=== PATIENT | male | born 1980 | race Caucasian/White ===

== ENCOUNTER 2020-04-22 17:44 | Emergency (ER) | payer BC ==
[2020-04-22] MEDS ORDERED: Sodium Chloride 0.9% 2.5 ML Syringe FLUSH PRN (18:52)
[2020-04-22] MEDS ORDERED: Sodium Chloride 0.9% 10 ML Syringe FLUSH PRN (18:52)
[2020-04-22] MEDS ORDERED: Sodium Chloride 0.9% 1,000 ML IV ONE (18:53)
[2020-04-22] MEDS ORDERED: Ondansetron 4 MG/2 ML SDV IVPUSH ONE (18:53)
[2020-04-22] MEDS ORDERED: Pantoprazole 80 MG in Sodium Chloride 0.9% 20 ML IVPUSH ONE (18:54)
--- NOTE | 2020-04-22 19:13 | EDM.PDOC ---
<Mak Saul - Last Filed: 04/22/20 23:39> ED HPI GENERAL MEDICAL PROBLEM - General Chief Complaint: Gastrointestinal Problem Stated Complaint: ABD PAIN / VOMITING Time Seen by Provider: 04/22/20 18:15 - Related Data Allergies Allergy/AdvReac Type Severity Reaction Status Date / Time No Known Allergies Allergy Verified 04/22/20 17:57 Home Meds: Home Meds . [No Known Home Meds] 04/22/20 [History] Departure - Departure Time of Disposition: 23:41 Disposition: Home, Self-Care 01 Condition: Good Clinical Impression: Cholelithiasis Qualifiers: Cholelithiasis location: other site Biliary obstruction: without biliary obstruction Qualified Code(s): K80.80 - Other cholelithiasis without obstruction - Discharge Information *PRESCRIPTION DRUG MONITORING PROGRAM REVIEWED*: Not Applicable *COPY OF PRESCRIPTION DRUG MONITORING REPORT IN PATIENT PRESTON: Not Applicable Instructions: Cholelithiasis Referrals: Diaz Doshi MD [Physician] - 2 Days Forms: ED Department Discharge Additional Instructions: Please avoid fatty foods. Please call Dr. Doshi's office on Friday morning to arrange a follow-up appointment. The following information is given to patients seen in the emergency department who are being discharged to home. This information is to outline your options for follow-up care. We provide all patients seen in our emergency department with a follow-up referral. The need for follow-up, as well as the timing and circumstances, are variable depending upon the specifics of your emergency department visit. If you don't have a primary care physician on staff, we will provide you with a referral. We always advise you to contact your personal physician following an emergency department visit to inform them of the circumstance of the visit and for follow-up with them and/or the need for any referrals to a consulting specialist. The emergency department will also refer you to a specialist when appropriate. This referral assures that you have the opportunity for follow-up care with a specialist. All of these measure are taken in an effort to provide you with optimal care, which includes your follow-up. Under all circumstances we always encourage you to contact your private physician who remains a resource for coordinating your care. When calling for follow-up care, please make the office aware that this follow-up is from your recent emergency room visit. If for any reason you are refused follow-up, please contact the [facility] Emergency Department at and asked to speak to the emergency department charge nurse. - Assessment/Plan Assessment:: Pt received in sign out from prior provider. US with borderline thickening. Pt remains w/out sx in the ED. Pt was evaluated by Dr. Doshi of general surgery in the ED. Given lack of active sx, very minimal leukocytosis and borderline imaging and after discussion between Dr. Doshi and the patient plan will be for dc with outpatient f/u. <Kaylan Marcial - Last Filed: 04/23/20 19:06> ED HPI GENERAL MEDICAL PROBLEM - General Source of Information: Reports: Patient History Limitations: Reports: No Limitations - History of Present Illness INITIAL COMMENTS - FREE TEXT/NARRATIVE: HISTORY AND PHYSICAL: History of present illness: Is a 40-year-old male presenting to the ED for RUQ abdominal pain x4 hours. Patient works nights and notes eating breakfast at 0800 this morning (04/22/20). Patient went to bed and then was awoken at 1500 with RUQ abdominal pain and feeling nauseous. Patient reports forcing himself to vomit 7 times to relieve his symptoms and continues to feel nauseous. Patient has not eaten or drank since 8am today and states symptoms are improving without eating, but feels eating may worsen symptoms. Patient has a h/o of alcohol abuse but states he does not drink much anymore as he is dedicated to his work. Denies any other symptoms or concerns. Admits to smoking three quarters of a pack of cigarettes per day x17 years and admits to drinking a sixpack of light beer per week. Patient denies fever, chills, chest pain, shortness of breath, or cough. Denies headache, neck stiff ness, change in vision, syncope, or near syncope. Denies diarrhea, constipation, or dysuria. Has not noted any blood in urine or stool. Review of systems: As per history of present illness and below otherwise all systems reviewed and negative. Past medical history: As per history of present illness and as reviewed below otherwise noncontributory. Surgical history: As per history of present illness and as reviewed below otherwise noncontributory. Social history: See social history for further information Family history: As per history of present illness and as reviewed below otherwise noncontributory. Physical exam: General: Patient is alert, oriented, and in no acute distress. Patient laying comfortably on exam table. Vitals stable and reviewed by me. HEENT: Atraumatic, normocephalic, pupils equal and reactive bilaterally, negative for conjunctival pallor or scleral icterus, mucous membranes moist, neck supple, nontender, trachea midline. No drooling or trismus noted. No meningeal signs. No hot potato voice noted. Lungs: Clear to auscultation, breath sounds equal bilaterally, chest nontender. Heart: S1S2, regular rate and rhythm without overt murmur Abdomen: Soft, nondistended, RUQ tenderness to palpation, negative rebound. Negative for masses or hepatosplenomegaly. Negative for costovertebral tenderness. Genitourinary: Deferred. Rectal: Deferred. Skin: Intact, warm, dry. No lesions or rashes noted. Extremities: Atraumatic, negative for cords or calf pain. Neurovascular unremarkable. Cap refill WNL Neuro: Awake, alert, oriented. Cranial nerves II through XII unremarkable. Cerebellum unremarkable. Motor and sensory unremarkable throughout. Exam nonfocal. Notes: Patient declines pain medications at this time. I did call and speak to the General Surgeon nutrition technician, Dr. Doshi, and thoroughly discussed patients case, he requests a RUQ US performed and to call him back with results of US. Dr. Saul has assumed care of patient and will follow remaining diagnostics and disposition for patient. Diagnostics: CBC, CMP, lipase, ECG, Trop, Abd/Pelvic CT w cont, RUQ US, COVID 19 Therapeutics: NS, Protonix, Rocephin Impression: RUQ abdominal pain Plan: Definitive disposition and diagnosis as appropriate pending reevaluation and review of above. abdominal Pain Score (Numeric/FACES): 3 Past Medical History - Past Health History Medical/Surgical History: Denies Medical/Surgical History HEENT History: Reports: None Cardiovascular History: Reports: None Respiratory History: Reports: None Gastrointestinal History: Reports: None Genitourinary History: Reports: None Musculoskeletal History: Reports: None Neurological History: Reports: None Psychiatric History: Reports: None Endocrine/Metabolic History: Reports: None Dermatologic History: Reports: None - Infectious Disease History Infectious Disease History: Reports: None Social & Family History - Family History Family Medical History: No Pertinent Family History - Tobacco Use Packs/Tins Daily: 1 - Caffeine Use Caffeine Use: Reports: Coffee, Energy Drinks - Recreational Drug Use Recreational Drug Use Frequency: Socially ED ROS GENERAL - Review of Systems Review Of Systems: Comprehensive ROS is negative, except as noted in HPI. ED EXAM, GENERAL - Physical Exam Exam: See Below (see dictation) Course - Vital Signs Last Recorded V/S: Last Vital Signs Temp 97.1 F 04/22/20 21:55 Pulse 68 04/22/20 21:55 Resp 18 04/22/20 21:55 BP 115/79 04/22/20 21:55 Pulse Ox 97 04/22/20 21:55 - Orders/Labs/Meds Orders: Active Orders 24 hr Category Date Time Status Saline Lock Insert [OM.PC] Stat Oth 04/22/20 18:52 Ordered Labs: Laboratory Tests 04/22/20 04/22/20 04/22/20 Range/Units 18:08 18:08 19:30 WBC 11.34 H (4.0-11.0) K/uL RBC 5.17 (4.50-5.90) M/uL Hgb 16.9 (13.0-17.0) g/dL Hct 48.3 (38.0-50.0) % MCV 93.4 (80.0-98.0) fL MCH 32.7 H (27.0-32.0) pg MCHC 35.0 (31.0-37.0) g/dL RDW Std Deviation 42.4 (28.0-62.0) fl RDW Coeff of Lena 12 (11.0-15.0) % Plt Count 255 (150-400) K/uL MPV 11.90 (7.40-12.00) fL Neut % (Auto) 70.8 (48.0-80.0) % Lymph % (Auto) 22.0 (16.0-40.0) % [place] % (Auto) 5.2 (0.0-15.0) % Eos % (Auto) 1.8 (0.0-7.0) % Baso % (Auto) 0.2 (0.0-1.5) % Neut # (Auto) 8.0 H (1.4-5.7) K/uL Lymph # (Auto) 2.5 H (0.6-2.4) K/uL [place] # (Auto) 0.6 (0.0-0.8) K/uL Eos # (Auto) 0.2 (0.0-0.7) K/uL Baso # (Auto) 0.0 (0.0-0.1) K/uL Nucleated RBC % 0.0 /100WBC Nucleated RBCs # 0 K/uL Sodium 142 (136-148) mmol/L Potassium 3.9 (3.5-5.1) mmol/L Chloride 106 (98-107) mmol/L Carbon Dioxide 24.9 (21.0-32.0) mmol/L BUN 17 (7.0-18.0) mg/dL Creatinine 1.2 (0.8-1.3) mg/dL Est Cr Clr Drug Dosing 78.03 mL/min Estimated GFR (MDRD) > 60.0 ml/min Glucose 128 H (74-106) mg/dL Calcium 9.5 (8.5-10.1) mg/dL Total Bilirubin 0.3 (0.2-1.0) mg/dL AST 26 (15-37) IU/L ALT 54 (14-63) IU/L Alkaline Phosphatase 76 (46-116) U/L Troponin I < 0.050 (0.000-0.056) ng/mL Total Protein 7.4 (6.4-8.2) g/dL Albumin 4.0 (3.4-5.0) g/dL Globulin 3.4 (2.6-4.0) g/dL Albumin/Globulin Ratio 1.2 (0.9-1.6) Lipase 89 (73-393) U/L Urine Color YELLOW Urine Appearance CLEAR Urine pH 6.5 (5.0-8.0) Ur Specific [place] 1.025 (1.001-1.035) Urine Protein NEGATIVE (NEGATIVE) mg/dL Urine Glucose (UA) NEGATIVE (NEGATIVE) mg/dL Urine Ketones NEGATIVE (NEGATIVE) mg/dL Urine Occult Blood NEGATIVE (NEGATIVE) Urine Nitrite NEGATIVE (NEGATIVE) Urine Bilirubin NEGATIVE (NEGATIVE) Urine Urobilinogen 0.2 (<2.0) EU/dL Ur Leukocyte Esterase NEGATIVE (NEGATIVE) Influenza Type A RNA (NEGATIVE) Influenza Type B RNA (NEGATIVE) SARS-CoV-2 RNA (GINO) (NEGATIVE) 04/22/20 Range/Units 21:20 WBC (4.0-11.0) K/uL RBC (4.50-5.90) M/uL Hgb (13.0-17.0) g/dL Hct (38.0-50.0) % MCV (80.0-98.0) fL MCH (27.0-32.0) pg MCHC (31.0-37.0) g/dL RDW Std Deviation (28.0-62.0) fl RDW Coeff of Lena (11.0-15.0) % Plt Count (150-400) K/uL MPV (7.40-12.00) fL Neut % (Auto) (48.0-80.0) % Lymph % (Auto) (16.0-40.0) % [place] % (Auto) (0.0-15.0) % Eos % (Auto) (0.0-7.0) % Baso % (Auto) (0.0-1.5) % Neut # (Auto) (1.4-5.7) K/uL Lymph # (Auto) (0.6-2.4) K/uL [place] # (Auto) (0.0-0.8) K/uL Eos # (Auto) (0.0-0.7) K/uL Baso # (Auto) (0.0-0.1) K/uL Nucleated RBC % /100WBC Nucleated RBCs # K/uL Sodium (136-148) mmol/L Potassium (3.5-5.1) mmol/L Chloride (98-107) mmol/L Carbon Dioxide (21.0-32.0) mmol/L BUN (7.0-18.0) mg/dL Creatinine (0.8-1.3) mg/dL Est Cr Clr Drug Dosing mL/min Estimated GFR (MDRD) ml/min Glucose (74-106) mg/dL Calcium (8.5-10.1) mg/dL Total Bilirubin (0.2-1.0) mg/dL AST (15-37) IU/L ALT (14-63) IU/L Alkaline Phosphatase (46-116) U/L Troponin I (0.000-0.056) ng/mL Total Protein (6.4-8.2) g/dL Albumin (3.4-5.0) g/dL Globulin (2.6-4.0) g/dL Albumin/Globulin Ratio (0.9-1.6) Lipase (73-393) U/L Urine Color Urine Appearance Urine pH (5.0-8.0) Ur Specific [place] (1.001-1.035) Urine Protein (NEGATIVE) mg/dL Urine Glucose (UA) (NEGATIVE) mg/dL Urine Ketones (NEGATIVE) mg/dL Urine Occult Blood (NEGATIVE) Urine Nitrite (NEGATIVE) Urine Bilirubin (NEGATIVE) Urine Urobilinogen (<2.0) EU/dL Ur Leukocyte Esterase (NEGATIVE) Influenza Type A RNA NEGATIVE (NEGATIVE) Influenza Type B RNA NEGATIVE (NEGATIVE) SARS-CoV-2 RNA (GINO) NEGATIVE (NEGATIVE) Meds: Medications Discontinued Medications Generic Name Dose Route Start Last Admin Trade Name Freq PRN Reason Stop Dose Admin Sodium Chloride 1,000 mls @ 999 mls/hr 04/22/20 18:53 04/22/20 19:03 Normal Saline IV 04/22/20 19:53 999 mls/hr STAT ONE Administration Pantoprazole Sodium 80 mg/ 20 mls @ 420 mls/hr 04/22/20 18:54 04/22/20 19:05 Sodium Chloride IVPUSH 04/22/20 18:56 420 mls/hr ONETIME ONE Administration Ceftriaxone Sodium/Dextrose 1 50 mls @ 100 mls/hr 04/22/20 21:09 04/22/20 21:19 gm/ Premix IV 04/22/20 21:38 100 mls/hr ONETIME ONE Administration Sodium Chloride 1,000 mls @ 125 mls/hr 04/22/20 21:30 04/22/20 21:30 Normal Saline IV 04/23/20 05:29 125 mls/hr NOW STA Administration Iopamidol 100 ml 04/22/20 20:22 04/22/20 20:22 Isovue Multipack-370 (76%) IVPUSH 04/22/20 20:23 100 ml ONETIME STA Administration Nicotine 14 mg 04/22/20 21:48 04/22/20 21:53 Habitrol TRDERM 04/22/20 21:49 14 mg ONETIME ONE Administration Ondansetron HCl 4 mg 04/22/20 18:53 02/13/21 19:04 Zofran IVPUSH 04/22/20 18:54 4 mg ONETIME ONE Administration Sodium Chloride 10 ml 04/22/20 18:52 Saline Flush FLUSH ASDIRECTED PRN Keep Vein Open Sodium Chloride 2.5 ml 04/22/20 18:52 Saline Flush FLUSH ASDIRECTED PRN Keep Vein Open Sepsis Event Note (ED) - Evaluation Sepsis Screening Result: No Definite Risk - My Orders Last 24 Hours: My Active Orders 04/22/20 18:52 Saline Lock Insert [OM.PC] Stat - Assessment/Plan Last 24 Hours: My Active Orders 04/22/20 18:52 Saline Lock Insert [OM.PC] Stat
[2020-04-22 19:19] LABS: BLOOD UREA NITROGEN,BUN 17 mg/dL (7.0-18.0); CARBON DIOXIDE,CO2 24.9 mmol/L (21.0-32.0); CHLORIDE,CL 106 mmol/L (98-107); GLUCOSE RANDOM 128 mg/dL (74-106); LIPASE 89 U/L (73-393); POTASSIUM,K 3.9 mmol/L (3.5-5.1); SODIUM,NA 142 mmol/L (136-148)
[2020-04-22] MEDS ORDERED: Iopamidol 755 MG/ML 500 ML Multipack Bottle IVPUSH STA (20:22)
--- NOTE | 2020-04-22 20:53 | CT ---
INDICATION: Lower abdominal pain TECHNIQUE: CT abdomen and pelvis acquired with IV contrast. 100 mL of Isovue 370 administered. COMPARISON: None available FINDINGS: Lower chest: Unremarkable. Liver: Mild hepatic steatosis. Spleen: Unremarkable. Pancreas: Unremarkable. Gallbladder and bile ducts: Cholelithiasis with mild pericholecystic edema and stranding. Adrenal glands: A 2.7 x 2.7 cm predominantly fat attenuation right adrenal lesion, containing ill-defined soft tissue density, consistent with a myelolipoma. Kidneys: No hydronephrosis. A subcentimeter right renal low-density lesion, statistically a small cyst. GI tract: Unremarkable. Appendix is normal. Vascular structures: Unremarkable. Lymph nodes: Unremarkable. Miscellaneous: No free fluid or free air. A very small fat containing paraumbilical hernia. Pelvic Organs: Grossly unremarkable prostate. Mild bladder wall thickening. Bones: Degenerative changes at the lumbosacral junction with a prominent disc osteophyte complex. IMPRESSION: Cholelithiasis with mild pericholecystic edema and stranding. Correlate clinically and with sonography for acute cholecystitis. Mild bladder wall thickening. Correlate for cystitis. A 2.7 cm right adrenal myelolipoma. Mild hepatic steatosis. Please note that all CT scans at this facility use dose modulation, iterative reconstruction, and/or weight-based dosing when appropriate to reduce radiation dose to as low as reasonably achievable. Dictated by Jareth Orozco MD @ Apr 22 2020 8:42PM Signed by Dr. Jareth Orozco @ Apr 22 2020 8:52PM
[2020-04-22] MEDS ORDERED: cefTRIAXone 1 GM in Premix Bag 1 BAG IV ONE (21:09)
[2020-04-22] MEDS ORDERED: Sodium Chloride 0.9% 1,000 ML IV STA (21:30)
[2020-04-22] MEDS ORDERED: Nicotine 14 MG/24 Hr Patch TRDERM ONE (21:48)
[2020-04-22 22:28] LABS: CORONAVIRUS COVID-19 NAA NEGATIVE (NEGATIVE); INFLUENZA A NAA NEGATIVE (NEGATIVE); INFLUENZA B NAA NEGATIVE (NEGATIVE)
--- NOTE | 2020-04-22 23:30 | US ---
INDICATION: Abdominal pain. CT scan earlier showing possible acute cholecystitis. COMPARISON: CT of the abdomen and pelvis 04/22/2020. TECHNIQUE: Real time berman scale imaging and color Doppler analysis was performed of the right upper quadrant. FINDINGS: Liver: The liver is normal in size measuring 14.2 cm in length. Increased echogenicity compatible with hepatic steatosis. No focal liver lesions. Gallbladder: There are multiple stones within the gallbladder. The gallbladder wall is mildly thickened. No pericholecystic fluid. Positive sonographic Dickerson sign. Bile ducts: No biliary dilation. The common bile duct measures 5 mm in diameter. Pancreas: Normal where seen. Right kidney: The right kidney measures 10.7 cm in length. No hydronephrosis, calculus, or mass. Right adrenal gland: There is a 2.9 cm solid hyperechoic lesion in the right adrenal gland. No internal vascularity. This corresponds with the benign myelolipoma seen on CT. IMPRESSION: 1. Cholelithiasis with mild gallbladder wall thickening and positive sonographic Dickerson sign. Findings are compatible with acute cholecystitis. 2. Diffuse hepatic steatosis. 3. 2.9 cm benign myelolipoma in the right adrenal gland. Dictated by Julita Addison MD @ Apr 22 2020 11:22PM Signed by Dr. Julita Addison @ Apr 22 2020 11:28PM
--- NOTE | 2020-04-23 07:04 | ER ---
HISTORY OF PRESENT ILLNESS: The patient is a pleasant 40-year-old gentleman, who said this morning he ate some and went to bed. He said he woke up with some more midabdominal pain. He thought this was food poisoning, so he forced himself to vomit several times. The pain was starting to dissipate, and he was feeling better, but he was worried about food poisoning, so he came to the hospital for further evaluation. The patient did have a CT scan that showed a gallstone with mild pericystic edema and stranding. He then had an ultrasound, which again showed some multiple stones. The gallbladder wall was mildly thickened, but there was no pericholecystic fluid. The nanotechnician reported a positive Dickerson sign. However, when I speak with the patient, he denies any pain or discomfort with ultrasound being done. Currently, the patient says he feels good. He has no nausea or vomiting. He has no abdominal pain. The patient says he has never had an episode like this in the past. The patient does work the night shifts. PAST MEDICAL HISTORY: The patient denies any. CURRENT HOME MEDICATION: The patient denies any. PAST SURGICAL HISTORY: The patient denies any. FAMILY HISTORY: The patient denies any family history of cancer, diabetes, or heart disease. SOCIAL HISTORY: The patient smokes 3/4 of a pack of cigarettes per day. He denies illicit drug use. He drinks about a 6-pack every 2 weeks. He said a couple of months ago, he had a much higher alcohol intake, but he has been quitting. REVIEW OF SYSTEMS: A complete 12+ review of systems was done and was negative, except for what is in the HPI. IMAGING: As per HPI. LABORATORY DATA: White cell count is 11.3, hemoglobin is 16.9, and platelet count is 255. Sodium 142, potassium 3.9, chloride 106, bicarb is 24.9, BUN 17, creatinine 1.2, and glucose is 128. Total bilirubin 0.3, AST is 26, ALT is 54, and alkaline phosphatase is 76. Lipase is 89. PHYSICAL EXAMINATION: GENERAL: The patient is lying comfortably in an ER bed. He is alert, oriented, and in no acute distress. VITAL SIGNS: Temperature is 97.1, pulse is 68, blood pressure is 115/79, and saturating 95% on room air. HEENT: Head is normocephalic and atraumatic. Mouth: He is wearing a mask. LUNGS: Clear to auscultation bilaterally. No rhonchi or wheezing is heard. HEART: Regular rate and rhythm. No murmur is appreciated. ABDOMEN: Soft, nontender, and nondistended. EXTREMITIES: No edema. NEUROLOGICAL: Grossly, no motor or neurologic deficits are noted. ASSESSMENT AND PLAN: This is a pleasant 40-year-old gentleman, who has symptomatic cholelithiasis with biliary colic. I went over with the patient what a gallbladder was. I went over laparoscopic cholecystectomy. I went over the risks, goals, and alternatives of the procedure, which include, but are not limited to, bleeding, infection, bile leak, injury to the common bile duct or duodenum, need to convert to open, hernia formation, and retained gallstones. The patient understands. Since the patient has no LFT elevation, no pericholecystic fluid, and no abdominal pain, this likely is symptomatic cholelithiasis. I went over with the patient that this could be done as an outpatient rather than admission and urgent surgery. The patient agrees. He would like to discharge and follow up in clinic for an outpatient cholecystectomy. I did go over that if he has another attack or the pain comes back, he may need to come back to the emergency room. The patient understands. Meanwhile, the patient is to stay with a low- fat diet until he gets his gallbladder out. All of the patient's questions were answered. I did discuss the case with the emergency room physician. SHERRIE GENTILE /[id number]
== END 2020-04-22 23:56 | disposition home or self-care (01) ==
LOC: MW.ED 17:44
DX: K80.70 Calculus of gallbladder and bile duct without cholecystitis without obstruction (principal); F17.210 Nicotine dependence, cigarettes, uncomplicated; Z20.822 Contact with and (suspected) exposure to COVID-19
CPT/HCPCS: 0240U; 36415; 74177; 76705; 80053; 81003; 83690; 84484; 85025; 93005; 96361; 96365; 96375; 99284; A9270; C9113; J0696; J2405; J7030; Q9967

== ENCOUNTER 2020-07-05 06:48 | Day surgery (SDC) | payer BC ==
[~2020-07-05 06:48] MED LIST: Acetaminophen 1,000 MG in Premix Bag 1 BAG IV ONE; Lactated Ringers 1,000 ML IV SCH; Pregabalin 75 MG Cap PO ONE; cefOXitin 2 GM in Premix Bag 1 BAG IV ONE
[2020-07-05] MEDS ORDERED: Propofol 200 MG/20 ML SDV ONE (07:01)
[2020-07-05] MEDS ORDERED: Ketorolac 30 MG/ML SDV ONE (07:01)
[2020-07-05] MEDS ORDERED: Rocuronium Bromide 50 MG/5 ML Syringe ONE ×2 (07:01→08:14)
[2020-07-05] MEDS ORDERED: Dexamethasone 4 MG/ML 5 ML MDV ONE (07:01)
[2020-07-05] MEDS ORDERED: Ondansetron 4 MG/2 ML SDV ONE (07:01)
[2020-07-05] MEDS ORDERED: Sugammadex Sodium 200 MG/2 ML VIAL ONE (07:01)
[2020-07-05] MEDS ORDERED: Morphine 10 MG/ML Syringe ONE (07:02)
[2020-07-05] MEDS ORDERED: fentaNYL 100 MCG/2 ML SDV ONE ×2 (07:02→08:14)
[2020-07-05] MEDS ORDERED: HYDROmorphone 2 MG/ML Syringe IVPUSH PRN (07:21)
[2020-07-05] MEDS ORDERED: Ondansetron 4 MG/2 ML SDV IVPUSH PRN (07:21)
[2020-07-05] MEDS ORDERED: Metoclopramide 10 MG/2 ML SDV IVPUSH PRN (07:21)
[2020-07-05] MEDS ORDERED: Morphine 2 MG/ML SYRINGE IVPUSH PRN (07:21)
[2020-07-05] MEDS ORDERED: Naloxone 0.4 MG/ML Syringe IVPUSH PRN (07:21)
[2020-07-05] MEDS ORDERED: Albuterol 0.083% 2.5 MG/3 ML Neb Soln NEB PRN (07:21)
--- NOTE | 2020-07-05 07:21 | PCM.PREANE ---
Preanesthetic Assessment - Anesthesia/Transfusion/Family Hx Anesthesia History: Prior Anesthesia Without Reaction Family History of Anesthesia Reaction: No Transfusion History: No Prior Transfusion(s) Intubation History: Unknown - Review of Systems General: No Symptoms Pulmonary: No Symptoms Cardiovascular: No Symptoms Gastrointestinal: No Symptoms Neurological: No Symptoms Other: Reports: None - Physical Assessment NPO Status Date: 07/05/20 NPO Status Time: 00:00 Height: 5 ft 9 in Weight: 202 lb ASA Class: 2 Mental Status: Alert & Oriented x3 Dentition: Reports: Normal Dentition ROM/Head Extension: Full Lungs: Clear to Auscultation, Normal Respiratory Effort Cardiovascular: Regular Rate, Regular Rhythm - Allergies Allergies/Adverse Reactions: Allergies Allergy/AdvReac Type Severity Reaction Status Date / Time No Known Allergies Allergy Verified 07/04/20 09:04 - Blood Blood Available: No - Acknowledgements Anesthesia Type Planned: General Anesthesia Pt an Appropriate Candidate for the Planned Anesthesia: Yes Alternatives and Risks of Anesthesia Discussed w Pt/Guardian: Yes Pt/Guardian Understands and Agrees with Anesthesia Plan: Yes PreAnesthesia Questionnaire - Past Health History Medical/Surgical History: Denies Medical/Surgical History HEENT History: Reports: None Cardiovascular History: Reports: None Respiratory History: Reports: None Gastrointestinal History: Reports: None Other Gastrointestinal History: symptomatic cholelithiasis Genitourinary History: Reports: None Musculoskeletal History: Reports: None Neurological History: Reports: None Psychiatric History: Reports: None Endocrine/Metabolic History: Reports: None Hematologic History: Reports: None Immunologic History: Reports: None Oncologic (Cancer) History: Reports: None Dermatologic History: Reports: None - Infectious Disease History Infectious Disease History: Reports: None - Past Surgical History Head Surgeries/Procedures: Reports: None HEENT Surgical History: Reports: Oral Surgery Other HEENT Surgeries/Procedures: wisdom teeth extraction Cardiovascular Surgical History: Reports: None Respiratory Surgical History: Reports: None GI Surgical History: Reports: None Male Surgical History: Reports: None Endocrine Surgical History: Reports: None Neurological Surgical History: Reports: None Musculoskeletal Surgical History: Reports: None Oncologic Surgical History: Reports: None Dermatological Surgical History: Reports: None - SUBSTANCE USE Tobacco Use Status *Q: Current Every Day Tobacco User Tobacco Use Within Last Twelve Months: Cigarettes - HOME MEDS Home Medications: Home Meds . [No Known Home Meds] 04/22/20 [History] - CURRENT (IN HOUSE) MEDS Current Meds: Current Medications Lactated Ringer's (Ringers, Lactated) 1,000 mls @ 125 mls/hr IV ASDIRECTED ROEL Discontinued Medications Dexamethasone (Dexamethasone 4 Mg/Ml 5 Ml Mdv) Confirm Administered Dose 20 mg .ROUTE .STK-MED ONE Stop: 07/05/20 07:02 Fentanyl (Fentanyl 100 Mcg/2 Ml Sdv) Confirm Administered Dose 100 mcg .ROUTE .STK-MED ONE Stop: 07/05/20 07:03 Cefoxitin Sodium 2 gm/ Premix 50 mls @ 100 mls/hr IV ONETIME ONE Stop: 07/03/20 09:51 Acetaminophen 1,000 mg/ Premix 100 mls @ 400 mls/hr IV NOW ONE Stop: 07/03/20 09:36 Acetaminophen (Ofirmev 1000 Mg/100 Ml) Confirm Administered Dose 100 mls @ as directed .ROUTE .STK-MED ONE Stop: 07/05/20 07:02 Ketorolac Tromethamine (Ketorolac 30 Mg/Ml Sdv) Confirm Administered Dose 30 mg .ROUTE .STK-MED ONE Stop: 07/05/20 07:02 Lidocaine HCl (Lidocaine 1% 5 Ml Sdv) Confirm Administered Dose 5 ml .ROUTE .STK-MED ONE Stop: 07/05/20 07:02 Morphine Sulfate (Morphine 10 Mg/Ml Syringe) Confirm Administered Dose 10 mg .ROUTE .STK-MED ONE Stop: 07/05/20 07:03 Ondansetron HCl (Ondansetron 4 Mg/2 Ml Sdv) Confirm Administered Dose 8 mg .ROUTE .STK-MED ONE Stop: 07/05/20 07:02 Pregabalin (Pregabalin 75 Mg Cap) 150 mg PO DAILY ONE Stop: 07/04/20 09:01 Propofol (Propofol 200 Mg/20 Ml Sdv) Confirm Administered Dose 200 mg .ROUTE .STK-MED ONE Stop: 07/05/20 07:02 Rocuronium [place] (Rocuronium [place] 50 Mg/5 Ml Syringe) Confirm Administered Dose 50 mg .ROUTE .STK-MED ONE Stop: 07/05/20 07:02 Sugammadex Sodium (Sugammadex Sodium 200 Mg/2 Ml Vial) Confirm Administered Dose 200 mg .ROUTE .STK-MED ONE Stop: 07/05/20 07:02
[2020-07-05] MEDS ORDERED: Sodium Chloride 0.9% 20 ML ONE (07:44)
[2020-07-05] MEDS ORDERED: cefOXitin 1 GM Vial ONE (07:44)
[2020-07-05] MEDS ORDERED: Esmolol 100 MG/10 ML SDV ONE (08:02)
[2020-07-05] MEDS ORDERED: Pregabalin 75 MG Cap PO ONE (09:00)
--- NOTE | 2020-07-05 09:42 | PCM.OPNOTE ---
- General Post-Op/Procedure Note Date of Surgery/Procedure: 07/05/20 Operative Procedure(s): laparoscopic cholecystectomy Findings: gallbladder with stones and adhesions dictation number #[id number] Pre Op Diagnosis: symptomatic cholelithiasis Post-Op Diagnosis: symptomatic cholelithiasis Anesthesia Technique: General ET Tube Primary Surgeon: Diaz Doshi Pathology: gallbladder EBL in mLs: 5 Complications: None Condition: Good
[2020-07-05] MEDS: fentaNYL 100 MCG/2 ML SDV IVPUSH PRN ×2 (09:56→10:03)
--- NOTE | 2020-07-05 09:56 | PCM.POSTAN ---
POST ANESTHESIA ASSESSMENT - MENTAL STATUS Mental Status: Alert, Oriented - VITAL SIGNS Vital Signs: Last Vital Signs Temp 97.7 F 07/05/20 06:50 Pulse 83 07/05/20 06:50 Resp 15 07/05/20 06:50 BP 124/77 07/05/20 06:50 Pulse Ox 96 07/05/20 06:50 - RESPIRATORY Respiratory Status: Respiratory Rate WNL, Airway Patent, O2 Saturation Stable - CARDIOVASCULAR CV Status: Pulse Rate WNL, Blood Pressure Stable - GASTROINTESTINAL GI Status: No Symptoms - POST OP HYDRATION Hydration Status: Adequate & Stable
--- NOTE | 2020-07-05 09:56 | PCM48HPAN ---
Post Anesthesia Note - EVALUATION WITHIN 48HRS OF ANESTHETIC Vital Signs in Normal Range: Yes Patient Participated in Evaluation: Yes Respiratory Function Stable: Yes Airway Patent: Yes Cardiovascular Function Stable: Yes Hydration Status Stable: Yes Pain Control Satisfactory: Yes Nausea and Vomiting Control Satisfactory: Yes Mental Status Recovered: Yes Vital Signs: Last Vital Signs Temp 97.7 F 07/05/20 06:50 Pulse 83 07/05/20 06:50 Resp 15 07/05/20 06:50 BP 124/77 07/05/20 06:50 Pulse Ox 96 07/05/20 06:50
[2020-07-05] MEDS ORDERED: Octyl 2-Cyanoacrylate 1 Tube ONE (11:10)
[2020-07-05] MEDS ORDERED: Bupivacaine 25%/EPINEPHrine/PF 30 ML ONE (11:10)
--- NOTE | 2020-07-05 18:07 | OR ---
SURGEON: KEIKO TORRES MD DATE OF PROCEDURE: 07/05/2020 PREOPERATIVE DIAGNOSIS: Symptomatic cholelithiasis. POSTOPERATIVE DIAGNOSIS: Symptomatic cholelithiasis. PROCEDURE PERFORMED: Laparoscopic cholecystectomy. ANESTHESIA: General. ESTIMATED BLOOD LOSS: 5 mL. SPECIMEN: Gallbladder. REASON FOR PROCEDURE: The patient is a pleasant 40-year-old gentleman who has had some right upper quadrant pain, last one was after eating [employer]. Did have ultrasound which showed some thickened gallbladder wall with multiple gallstones. No LFT elevations. The patient says he has not had any further attacks since I have seen him last. We did go over with the patient risks, goals, and alternatives of the procedure. Risks include but not limited to bleeding, infection, bile leak; injury to nearby structures, common bile duct, or duodenum; hernia formation; need to convert to open; retained gallstones; change in bowel habits such as diarrhea, and that this could be something other than gallbladder causing his pain. The patient understands and wishes to proceed. OPERATIVE NARRATIVE: The patient was brought to the OR. He was prepped and draped in usual sterile fashion. SCDs were placed. Preoperative antibiotics were given and anesthesia by the Anesthesia team. After time-out was performed, infraumbilical incision was made. This was carried down to the fascia. The fascia was then entered in an open Benjamin technique. Benjamin trocar was placed. Insufflation was began. Abdomen was inspected. No entry injury was noted. Did have some adhesions down in his lower right pelvis. Now three more 5 mm trocars were placed, one in the midepigastric, one in the midclavicular subcostal area, and one more in the right lower abdomen. Now, the fundus of the gallbladder was grasped and elevated. The patient did have some omental adhesions to the gallbladder and these were gently taken down. The patient's gallbladder was all scarred in. With some gentle mainly blunt dissection able to take down these adhesions. The duodenum and colon did sweep up very close to the gallbladder. Again, these were taken down with blunt dissection. Good hemostasis. Did get a good critical view with the cystic duct and cystic artery. The patient had been injected with indocyanine green which did show good cystic duct even going into the common bile duct junction. He was injected with another dose of contrast and the cystic artery lit up as expected. Now, the cystic duct and cystic artery were clipped and transected. The gallbladder was taken off the gallbladder fossa with Harmonic scalpel. There was good hemostasis. No other tubular structures were encountered. The gallbladder was then placed in EndoCatch bag. Now, the operative site was inspected and some suction irrigation. There was good hemostasis. Clips appeared to be still in good position and intact. Now, the pneumoperitoneum was released and EndoCatch bag with the gallbladder was removed. Did still have some stones in the gallbladder. Now, the 5 mm trocar was also removed. The fascia was closed with a [id number] 0 Vicryl. All the trocar sites were again injected with the rest of the local. With the injection of local, they were then closed with 4-0 Monocryl and Dermabond. At the end of the case, sponge and needle counts were correct. The patient was transferred to the recovery room in stable condition. SHERRIE GENTILE /[id number]
== END 2020-07-05 12:50 | disposition home or self-care (01) ==
LOC: MW.SDS 06:48
PROVIDERS: ATTEND Surgery
DX: K80.10 Calculus of gallbladder with chronic cholecystitis without obstruction (principal); F17.210 Nicotine dependence, cigarettes, uncomplicated
CPT/HCPCS: 47562; 88304; A9270; J0131; J0694; J1100; J1885; J2270; J2704; J3010; J3490; J7120; 00790; J2405

== ENCOUNTER 2020-08-27 07:09 | Emergency (ER) | payer BC ==
[2020-08-27] MEDS ORDERED: Amoxicillin 500 MG Cap PO ONE (07:27)
[2020-08-27] MEDS ORDERED: Dexamethasone 4 MG Tab PO ONE (07:28)
--- NOTE | 2020-08-27 07:32 | EDM.PDOC ---
ED HPI GENERAL MEDICAL PROBLEM - General Chief Complaint: ENT Problem Stated Complaint: SORE THROAT Time Seen by Provider: 08/27/20 07:30 - History of Present Illness INITIAL COMMENTS - FREE TEXT/NARRATIVE: CHIEF COMPLAINT(S): "I think I have strep throat." HISTORY OF PRESENT ILLNESS: This is a 40-year-old man without any significant past medical history who comes to the emergency department with a chief complaint of "I think I have strep throat." The patient states that for the last 2 days he has been experiencing a sore throat and it is painful when he swallows. He denies any fevers, chills, runny nose, congestion, or cough. He denies any drooling, trismus or voice changes. He rates his pain as 7-8 out of 10 and is worse when he swallows. It is an achy pain. His pain is aggravated by swallowing. Relieving factor was DayQuil yesterday. He states that he has had strep throat in the past and it feels very similar. REVIEW OF SYSTEMS: Constitutional: Denies fever, chills. Eyes: Denies eye pain Ears, Nose, Mouth, & Throat: Positive for sore throat. Denies earache, runny nose, congestion, trismus, drooling, voice changes Cardiovascular: Denies chest pain Respiratory: Denies shortness of breath Gastrointestinal: Denies Nausea, vomiting, diarrhea, hematochezia. Genitourinary: Denies hematuria Skin:Denies a rash MSK: Denies joint pain Neurological: Denies blurred vision Psychiatric: Denies depression PAST MEDICAL HISTORY: As per history of present illness and as reviewed below otherwise noncontributory. SURGICAL HISTORY: As per history of present illness and as reviewed below otherwise noncontributory. SOCIAL HISTORY: As per history of present illness and as reviewed below otherwise noncontributory. FAMILY HISTORY: As per history of present illness and as reviewed below otherwise noncontributory. EXAMINATION OF ORGAN SYSTEMS/BODY AREAS: Constitutional: Blood pressure is 124/80, heart rate 75 respiratory rate 17 with an oxygen saturation of 97% on room air. Temperature 36.4. General: Well-appearing man who is in no acute distress sitting comfortably in a chair Psychiatric: Appropriate mood and affect. Eyes: No scleral icterus or conjunctival erythema ENMT: Moist mucous membranes. There is mild pharyngeal erythema. There is tonsillar exudates and swelling. Uvula is midline. No trismus no drooling. No stridor. Bilateral tympanic membranes and nasal turbinates without any abnormalities. Cardiovascular: Regular, rate, and rhythm. No gallops, murmurs, or rubs. Bilateral upper extremity pulses symmetric and intact. No peripheral edema. No JVD. Respiratory: Lungs clear to auscultation bilaterally. No wheezes, rales, or rhonchi. Neurological: Alert, GCS 15 MEDICAL DECISION MAKING AND COURSE IN THE ED WITH INTERPRETATION/REVIEW OF DIAGNOSTIC STUDIES: This is a 40-year-old man and with a past medical history of prior strep pharyngitis who comes to the emergency department with sore throat for 2 days who has tonsillar exudates, swelling without any red flag symptoms such as trismus, drooling or stridor. The patient does not have a cough. I do not believe any swab is indicated we will treat prophylactically for strep pharyngitis. 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 I did discuss strict return precautions with the patient. He was amenable to discharge at this time and had no further questions DISPOSITION: The patient was discharged home in stable condition. The patient will follow up with primary care physician in 5 to 7 days CONDITION: Fair PROCEDURES: None FINAL IMPRESSION(S)/DIAGNOSES: Acute pharyngitis, likely strep a pharyngitis Miky Del Real M.D. Throat Pain Score (Numeric/FACES): 5 - Related Data Allergies Allergy/AdvReac Type Severity Reaction Status Date / Time No Known Allergies Allergy Verified 08/27/20 07:19 Home Meds: Home Meds Amoxicillin 500 mg PO BID #18 tab 08/27/20 [Rx] Past Medical History - Past Health History Medical/Surgical History: Denies Medical/Surgical History HEENT History: Reports: None Cardiovascular History: Reports: None Respiratory History: Reports: None Gastrointestinal History: Reports: Other (See Below) Other Gastrointestinal History: symptomatic cholelithiasis Genitourinary History: Reports: None Musculoskeletal History: Reports: None Neurological History: Reports: None Psychiatric History: Reports: None Endocrine/Metabolic History: Reports: None Hematologic History: Reports: None Immunologic History: Reports: None Oncologic (Cancer) History: Reports: None Dermatologic History: Reports: None - Infectious Disease History Infectious Disease History: Reports: None - Past Surgical History Head Surgeries/Procedures: Reports: None HEENT Surgical History: Reports: Oral Surgery Other HEENT Surgeries/Procedures: wisdom teeth extraction Cardiovascular Surgical History: Reports: None Respiratory Surgical History: Reports: None GI Surgical History: Reports: None Male Surgical History: Reports: None Endocrine Surgical History: Reports: None Neurological Surgical History: Reports: None Musculoskeletal Surgical History: Reports: None Oncologic Surgical History: Reports: None Dermatological Surgical History: Reports: None Social & Family History - Family History Family Medical History: No Pertinent Family History - Caffeine Use Caffeine Use: Reports: Coffee, Energy Drinks - Recreational Drug Use Recreational Drug Use: No ED ROS ENT - Review of Systems Review Of Systems: See Below ED EXAM, ENT - Physical Exam Exam: See Below Course - Vital Signs Last Recorded V/S: Last Vital Signs Temp 36.4 C 08/27/20 07:20 Pulse 79 08/27/20 07:40 Resp 16 08/27/20 07:40 BP 124/80 08/27/20 07:20 Pulse Ox 99 08/27/20 07:40 - Orders/Labs/Meds Meds: Medications Discontinued Medications Generic Name Dose Route Start Last Admin Trade Name Justino PRN Reason Stop Dose Admin Amoxicillin 1,000 mg 08/27/20 07:27 08/27/20 07:37 Amoxicillin 500 Mg Cap PO 08/27/20 07:28 1,000 mg ONETIME ONE Administration Dexamethasone 8 mg 08/27/20 07:28 08/27/20 07:37 Dexamethasone 4 Mg Tab PO 08/27/20 07:29 8 mg ONETIME ONE Administration Departure - Departure Time of Disposition: 07:30 Disposition: Home, Self-Care 01 Condition: Fair Clinical Impression: Strep pharyngitis - Discharge Information Prescriptions: Amoxicillin 500 mg PO BID #18 tab Instructions: Strep Throat, Adult Referrals: PCP,None [Primary Care Provider] - Forms: ED Department Discharge Additional Instructions: You were evaluated today on an emergent basis. At this time we did not elect to do a swab and will just treat you prophylactically. I do recommend you complete the course of antibiotics which is amoxicillin 500 mg twice a day for the next 10 days. I do recommend Motrin for pain relief which is 400 mg every 6 hours. If you have any worsening symptoms such as inability to open mouth, change in your voice, fever, or excessive drooling I would like you to return to the emergency department. Please follow-up with primary care physician in 1 week. If you do not have a primary care physician please contact one of the numbers below to schedule an appointment. [facility] - [facility] [address] [place] [address] [facility] [address] [place] [id number] The patient is informed of any results of their evaluation and diagnostic workup and all questions are answered. They are given discharge instructions and return precautions. The patient is stable for discharge. The patient states they understand and agree with the plan and that they will return if their symptoms get worse or if they have any new concerns. The following information is given to patients seen in the emergency department who are being discharged to home. This information is to outline your options for follow-up care. We provide all patients seen in our emergency department with a follow-up referral. The need for follow-up, as well as the timing and circumstances, are variable depending upon the specifics of your emergency department visit. If you don't have a primary care physician on staff, we will provide you with a referral. We always advise you to contact your personal physician following an emergency department visit to inform them of the circumstance of the visit and for follow-up with them and/or the need for any referrals to a consulting specialist. The emergency department will also refer you to a specialist when appropriate. This referral assures that you have the opportunity for follow-up care with a specialist. All of these measure are taken in an effort to provide you with optimal care, which includes your follow-up. Under all circumstances we always encourage you to contact your private physician who remains a resource for coordinating your care. When calling for f ollow-up care, please make the office aware that this follow-up is from your recent emergency room visit. If for any reason you are refused follow-up, please contact the [facility] Emergency Department at and asked to speak to the emergency department charge nurse. Sepsis Event Note (ED) - Evaluation Sepsis Screening Result: No Definite Risk - Focused Exam Vital Signs: Vital Signs Temp Pulse Resp BP Pulse Ox 08/27/20 07:40 79 16 99 08/27/20 07:20 36.4 C 75 17 124/80 97
== END 2020-08-27 07:40 | disposition home or self-care (01) ==
LOC: MW.ED 07:09
DX: J02.0 Streptococcal pharyngitis (principal)
CPT/HCPCS: 99282; A9270; J8540; 99283

== ENCOUNTER 2021-12-23 10:18 | Emergency (ER) | payer BC ==
[2021-12-23] MEDS: Amoxicillin/Clavulanate K 875-125 MG Tab PO ONE (11:27)
[2021-12-23] MEDS: Mupirocin Oint 22 GM Tube TOP ONE (11:27)
== END 2021-12-23 11:31 | disposition home or self-care (01) ==
LOC: MW.ED 10:18
DX: J30.2 Other seasonal allergic rhinitis (principal); L01.00 Impetigo, unspecified
CPT/HCPCS: 99282; A9270; 99283